=== PATIENT | male | born 1985 | race Caucasian/White ===

== ENCOUNTER 2018-10-31 17:33 | Emergency (ER) | payer OTHER, MEDICAID ==
[2018-10-31] MEDS: morphine 4 MG/ML VIAL IM (18:13)
[2018-10-31] MEDS: ONDANSETRON (ODT) 4 MG TAB ODT (18:13)
[2018-10-31] MEDS: DIPHTH/TET/ACEL PERTUSS (ADULT) 0.5 ML VIAL IM* (18:18)
[2018-10-31] MEDS: OXYCODONE/ACETAMINOPHEN (10/325) TAB PO (20:09)
[2018-10-31] MEDS: BUPIVACAINE 0.25% (MPF) 10 ML 10 ML VIAL INJ (21:00)
[2018-10-31] MEDS: BUPIVACAINE 0.25% (MPF) 30 ML INJ INJ (22:18)
[2018-10-31] MEDS ORDERED: ONDANSETRON (ODT) 4 MG TAB ODT (22:47)
== END 2018-10-31 23:01 | disposition home or self-care (01) ==
LOC: FTE 17:33 → E/R 23:01
DX: S61.213A Laceration without foreign body of left middle finger without damage to nail, initial encounter (principal); S61.215A Laceration without foreign body of left ring finger without damage to nail, initial encounter; W27.0XXA Contact with workbench tool, initial encounter; Y92.9 Unspecified place or not applicable; Z23 Encounter for immunization
CPT/HCPCS: 12002; 73130-LT; 90471; 90715; 96372; 99284-25

== ENCOUNTER 2018-11-13 05:16 | Day surgery (SDC) | payer OTHER ==
[2018-11-13 05:52] LABS: ADD MAN DIFF? NO
[2018-11-13] MEDS ORDERED: CEFAZOLIN 2 GM/50 ML (PMX) 50 ML IVPB (06:00)
[2018-11-13 06:02] LABS: WHITE BLOOD COUNT 6.5 10^3/ul (4.8-10.8)
[2018-11-13 06:02] LABS: BASOPHIL # 0.1 10^3/ul (0.0-0.1); BASOPHILS % 1.1 % (0.0-2.0); EOSINOPHILS # 0.3 10^3/ul (0.0-0.5); EOSINOPHILS % 5.2 % (0.0-7.0); HEMATOCRIT 45.8 % (42.0-52.0); HEMOGLOBIN 15.5 g/dl (14.0-18.0); LYMPHOCYTES # 2.8 10^3/ul (0.8-2.9); LYMPHOCYTES % 43.1 % (15.0-51.0); MEAN CORPUSCULAR HEMOGLOBIN 30.8 pg (29.0-33.0); MEAN CORPUSCULAR HGB CONC 33.8 g/dl (32.0-37.0); MEAN CORPUSCULAR VOLUME 90.9 fl (82.0-101.0); MEAN PLATELET VOLUME 10.8 fl (7.4-10.4); MONOCYTE # 0.5 10^3/ul (0.3-0.9); MONOCYTES % 8.3 % (0.0-11.0); NEUTROPHIL # 2.7 10^3/ul (1.6-7.5); NEUTROPHILS % 41.8 % (39.0-77.0); PLATELET COUNT 214 10^3/UL (140-415); RED BLOOD COUNT 5.04 10^6/ul (4.70-6.10); RED CELL DISTRIBUTION WIDTH 11.5 % (11.5-14.5)
[2018-11-13] MEDS: LACTATED RINGER'S 1,000 ML IV (06:05)
[2018-11-13 06:27] LABS: ANION GAP 8 (5-13); BLOOD UREA NITROGEN 14 mg/dl (7-20); CALCIUM 8.9 mg/dl (8.4-10.2); CARBON DIOXIDE 28 mmol/L (21-31); CHLORIDE 107 mmol/L (97-110); CREATININE 0.74 mg/dl (0.61-1.24); Estimated GFR > 60 mL/min (>60); GLUCOSE 115 mg/dl (70-220); POTASSIUM 4.5 mmol/L (3.5-5.1); SODIUM 143 mmol/L (135-144)
[2018-11-13 06:34] LABS: INR 0.88; PT RATIO 0.9
[2018-11-13 06:35] LABS: PARTIAL THROMBOPLASTIN TIME 31.7 Sec (23.0-35.0)
[2018-11-13] MEDS: POLYMYXIN/BACITRACIN 1L IRRIG (07:19)
[2018-11-13] MEDS: LIDOCAINE 1% (MPF) 30 ML INJ (07:19)
[2018-11-13] MEDS: BUPIVACAINE 0.25% (MPF) 30 ML INJ (07:19)
[2018-11-13] MEDS ORDERED: IPRATROPIUM (NEB) 0.5 MG/2.5 ML AMP HHN (07:30)
[2018-11-13] MEDS ORDERED: DIPHENHYDRAMINE 50 MG INJ IV (07:30)
[2018-11-13] MEDS ORDERED: hydrALAzine 20 MG INJ IV (07:30)
[2018-11-13] MEDS ORDERED: HYDROmorphONE 1 MG/5 ML IV SYRINGE IV ×3 (07:30)
[2018-11-13] MEDS ORDERED: OXYCODONE/ACETAMINOPHEN (5/325) TAB PO ×2 (07:30)
[2018-11-13] MEDS ORDERED: TRIMETHOBENZAMIDE 100 MG/ML VIAL IM (07:30)
[2018-11-13] MEDS ORDERED: EPHEDrine 25 MG/5 ML SYG IV (07:30)
[2018-11-13] MEDS ORDERED: MEPERIDINE 25 MG INJ IV (07:30)
[2018-11-13] MEDS ORDERED: ALBUTEROL 0.083% (NEB) 2.5 MG/3 ML AMP HHN (07:30)
[2018-11-13] MEDS ORDERED: LABETALOL HCL 20MG INJ IV (07:30)
[2018-11-13] MEDS ORDERED: FENTAnyl 50 MCG/ML VIAL IV ×3 (07:30)
[2018-11-13] MEDS ORDERED: MIDAZOLAM 1 MG/ML 2 ML INJ IV (07:30)
[2018-11-13] MEDS ORDERED: ONDANSETRON 4 MG INJ IV (07:30)
[2018-11-13] MEDS ORDERED: NEOSTIGMINE 3 MG/3 ML SYRINGE (07:48)
[2018-11-13] MEDS ORDERED: GLYCOPYRROLATE 0.4 MG INJ (07:48)
[2018-11-13] MEDS ORDERED: ROCURONIUM 50 MG INJ (07:48)
[2018-11-13] MEDS ORDERED: CEFAZOLIN 1 GM INJ (07:48)
[2018-11-13] MEDS ORDERED: PROPOFOL 20 ML (07:48)
[2018-11-13] MEDS ORDERED: DEXAMETHASONE 4 MG/ML 5 ML INJ (07:51)
[2018-11-13] MEDS ORDERED: ONDANSETRON 4 MG INJ (07:51)
[2018-11-13] MEDS ORDERED: MIDAZOLAM 1 MG/ML 2 ML INJ (07:51)
[2018-11-13] MEDS ORDERED: FENTAnyl 50 MCG/ML VIAL (07:51)
[2018-11-13] MEDS ORDERED: BUPIVACAINE 0.5% (SDV) 30 ML INJ (08:02)
== END 2018-11-13 10:37 | disposition home or self-care (01) ==
LOC: SDS 05:16
DX: S62.633B Displaced fracture of distal phalanx of left middle finger, initial encounter for open fracture (principal); X58.XXXA Exposure to other specified factors, initial encounter; I45.10 Unspecified right bundle-branch block
CPT/HCPCS: 11011; 71045; 80048; 85025; 85610; 85730; 93005